=== PATIENT | female | born 1940 | race Caucasian/White ===

== ENCOUNTER 2022-11-20 10:45 | Outpatient (CLI) | payer MEDICARE | END 2022-11-20 10:46 | disposition home or self-care (01) | LOC: CSHCP 10:45 | PROVIDERS: ATTEND Internal Medicine Hematology & Oncology | DX: Z01.818 Encounter for other preprocedural examination (principal); C18.8 Malignant neoplasm of overlapping sites of colon; C78.02 Secondary malignant neoplasm of left lung; J98.4 Other disorders of lung | CPT/HCPCS: 94010; 94726; 94729; 94760 ==